=== PATIENT | male | born 1960 | race Caucasian/White ===

== ENCOUNTER 2018-04-15 22:32 | Emergency (ER) | payer OTHER ==
[~2018-04-15] VITALS: Ht 175.3 cm; Wt 68.0 kg
[2018-04-16] MEDS ORDERED: SODIUM CHLORIDE 0.9% 1,000 ML IV ONE (01:14)
[2018-04-16] MEDS ORDERED: KETOROLAC 30MG/ML VIAL IV STA (01:14)
[2018-04-16] MEDS ORDERED: LORAZEPAM 0.5MG TABLET PO ONE (01:30)
[2018-04-16] MEDS ORDERED: IBUPROFEN 800MG TABLET PO ONE (01:30)
[2018-04-16 01:50] LABS: BASOPHILS % 0.6 % (0.0-2.0); EOSINOPHILS % 1.6 % (0.0-5.0); HEMATOCRIT. 33.8 % (42.0-52.0); HEMOGLOBIN. 11.6 g/dL (14.0-18.0); LYMPHOCYTES % 17.7 % (20.0-50.0); MEAN CORPUSCULAR HEMOGLOBIN 29.5 pg (28.0-32.0); MEAN CORPUSCULAR VOLUME 86.1 fL (80.0-94.0); MEAN PLATELET VOLUME 7.4 fl (7.4-10.4); MONOCYTES % 6.1 % (2.0-8.0); PLATELET 216 x1000/uL (130-400); RED BLOOD CELL COUNT 3.93 mill/uL (4.7-6.1); RED CELL DISTRIBUTION WIDTH 13.3 % (11.6-14.6)
[2018-04-16] MEDS ORDERED: LORAZEPAM 2MG/ML CPJ IM ONE (02:00)
[2018-04-16] MEDS ORDERED: HALOPERIDOL LACTATE 5MG/ML VIAL IM ONE (02:00)
[2018-04-16 04:36] LABS: *COCAINE SCREEN URINE NEGATIVE (NEGATIVE); CANNABINOID URINE SCREEN NEGATIVE (NEGATIVE); METHADONE URINE SCREEN NEGATIVE (NEGATIVE); OPIATES URINE SCREEN NEGATIVE (NEGATIVE); PHENCYCLIDINE URINE SCREEN NEGATIVE (NEGATIVE)
[2018-04-16 04:37] LABS: *AMPHETAMINES SCREEN URINE NEGATIVE (NEGATIVE); *BARBITURATES SCREEN URINE NEGATIVE (NEGATIVE); *BENZODIAZEPINES SCREEN URINE NEGATIVE (NEGATIVE)
[2018-04-16 09:39] LABS: CLARITY URINE CLEAR (CLEAR); COLOR URINE YELLOW (YELLOW); KETONES URINE NEGATIVE (NEGATIVE); LEUKOCYTE ESTERASE URINE NEGATIVE (NEGATIVE); NITRITE URINE NEGATIVE (NEGATIVE); OCCULT BLOOD URINE NEGATIVE (NEGATIVE); PROTEIN URINE NEGATIVE (NEGATIVE); SPECIFIC GRAVITY URINE 1.009 (1.005-1.030); UROBILINOGEN URINE 0.2 E.U./dL (0.2-1.0)
[2018-04-16 14:09] VITALS: BP 135/75
== END 2018-04-16 14:11 | disposition home or self-care (01) ==
LOC: ER 22:32
DX: R51 Headache (principal); M79.10 Myalgia, unspecified site; R11.0 Nausea; E11.9 Type 2 diabetes mellitus without complications; I10 Essential (primary) hypertension; I25.2 Old myocardial infarction
CPT/HCPCS: 36415; 70450; 80048; 80076; 80305; 81003; 82962; 85025; 93005; 96372; 99284; G0482; J1630; J2060; J7030; A4315

== ENCOUNTER 2021-05-20 23:33 | Inpatient (IN) | payer OTHER ==
[~2021-05-20] VITALS: Ht 170.2 cm; Wt 99.8 kg
[2021-05-21] MEDS ORDERED: NITROGLYCERIN 0.4MG TABLET SL SL PRN
[2021-05-21] MEDS ORDERED: ONDANSETRON HCL 4MG/2ML INJ IV ONE
[2021-05-21 00:36] LABS: HEMATOCRIT. 31.6 % (42.0-52.0); HEMOGLOBIN. 10.8 g/dL (14.0-18.0); MEAN CORPUSCULAR HEMOGLOBIN 28.2 pg (28.0-32.0); MEAN CORPUSCULAR VOLUME 82.8 fL (80.0-94.0); MEAN PLATELET VOLUME 7.2 fl (7.4-10.4); PLATELET 267 x1000/uL (130-400); RED BLOOD CELL COUNT 3.82 mill/uL (4.7-6.1); RED CELL DISTRIBUTION WIDTH 14.2 % (11.6-14.6)
[2021-05-21 00:39] LABS: CHLORIDE 101 mEq/L (98-107)
[2021-05-21 00:44] LABS: ETHANOL BLOOD < 10 mg/dL
[2021-05-21 01:31] LABS: D-DIMER 1.07 mg/L FEU (<0.50); INR 0.9; PARTIAL THROMBOPLASTIN TIME 33.3 sec (23.4-31.0); PROTHROMBIN TIME 10.2 sec (9.6-11.0)
[2021-05-21] MEDS: ENOXAPARIN 100MG/ML SYR SUBCUT SCH ×2 (02:34→15:00)
[2021-05-21] MEDS ORDERED: ACETAMINOPHEN 500MG TABLET PO ONE (03:30)
[2021-05-21 04:45] LABS: PLATELET ESTIMATE NORMAL
[2021-05-21] MEDS ORDERED: IOHEXOL-350 100 ML BOTTLE ONE (05:23)
[2021-05-21 07:14] LABS: *AMPHETAMINES SCREEN URINE NEGATIVE (NEGATIVE); *BARBITURATES SCREEN URINE NEGATIVE (NEGATIVE); *BENZODIAZEPINES SCREEN URINE NEGATIVE (NEGATIVE); CANNABINOID URINE SCREEN NEGATIVE (NEGATIVE); METHADONE URINE SCREEN NEGATIVE (NEGATIVE); OPIATES URINE SCREEN NEGATIVE (NEGATIVE); PHENCYCLIDINE URINE SCREEN NEGATIVE (NEGATIVE)
[2021-05-21 07:15] LABS: *COCAINE SCREEN URINE NEGATIVE (NEGATIVE)
[2021-05-21] MEDS ORDERED: AMLODIPINE 5MG TABLET PO NR (12:30)
[2021-05-21] MEDS: ONDANSETRON HCL 4MG/2ML INJ IV PRN ×2 (14:59→18:59)
[2021-05-21] MEDS: HYDRALAZINE 20MG/ML VIAL IV PRN ×2 (14:59→21:46)
[2021-05-21] MEDS: AMLODIPINE 5MG TABLET PO SCH (21:00)
[2021-05-22] MEDS: METOCLOPRAMIDE HCL 10MG/2ML VIAL IV PRN ×3 (00:01→14:32)
[2021-05-22] MEDS: DEXT 5%/0.45% NACL 1000ML 1,000 ML IV SCH ×2 (00:07→13:33)
[2021-05-22] MEDS: KCL 20MEQ/100ML PREMIX 100 ML IV NR ×2 (00:58→03:36)
[2021-05-22] MEDS: ONDANSETRON HCL 4MG/2ML INJ IV PRN ×3 (03:36→13:32)
[2021-05-22] MEDS: ENOXAPARIN 100MG/ML SYR SUBCUT SCH ×2 (03:39→13:32)
[2021-05-22 05:20] LABS: HEMOGLOBIN. 10.6 g/dL (14.0-18.0); MEAN CORPUSCULAR HEMOGLOBIN 28.4 pg (28.0-32.0); MEAN CORPUSCULAR VOLUME 83.1 fL (80.0-94.0); MEAN PLATELET VOLUME 7.4 fl (7.4-10.4); PLATELET 269 x1000/uL (130-400); RED BLOOD CELL COUNT 3.74 mill/uL (4.7-6.1)
[2021-05-22 05:26] LABS: CHLORIDE 104 mEq/L (98-107)
[2021-05-22] MEDS: AMLODIPINE 5MG TABLET PO SCH ×2 (09:41→22:48)
[2021-05-22] MEDS: ASPIRIN 81MG EC TABLET PO SCH (09:41)
[2021-05-22 12:27] LABS: PLATELET ESTIMATE NORMAL
[2021-05-22 18:15] VITALS: BP 149/76
[2021-05-22] MEDS ORDERED: INFLUENZA VACCINE 05/PF 0.5 ML SYRINGE IM ONE (19:30)
[2021-05-22] MEDS ORDERED: PNEUMOCOCCAL 23-VAL P-SAC VAC 0.5 ML IM ONE (19:30)
[2021-05-22] MEDS ORDERED: METF-414 MT (19:56)
[2021-05-22 20:00] VITALS: BP 168/87
[2021-05-23] MEDS: DEXT 5%/0.45% NACL 1000ML 1,000 ML IV SCH (03:09)
[2021-05-23] MEDS: ENOXAPARIN 100MG/ML SYR SUBCUT SCH (03:10)
[2021-05-23 04:00] VITALS: BP 189/90
[2021-05-23 06:27] LABS: BASOPHILS % 0.3 % (0.0-2.0); EOSINOPHILS % 0.2 % (0.0-5.0); HEMATOCRIT. 29.1 % (42.0-52.0); HEMOGLOBIN. 10.1 g/dL (14.0-18.0); LYMPHOCYTES % 12.4 % (20.0-50.0); MEAN CORPUSCULAR HEMOGLOBIN 28.3 pg (28.0-32.0); MEAN CORPUSCULAR VOLUME 81.9 fL (80.0-94.0); MEAN PLATELET VOLUME 7.3 fl (7.4-10.4); MONOCYTES % 6.1 % (2.0-8.0); PLATELET 277 x1000/uL (130-400); RED BLOOD CELL COUNT 3.55 mill/uL (4.7-6.1); RED CELL DISTRIBUTION WIDTH 13.8 % (11.6-14.6)
[2021-05-23 08:00] VITALS: BP 149/83
[2021-05-23] MEDS ORDERED: GUAIFENESIN-DM 200MG-20MG/10ML UDC PO PRN (08:45)
[2021-05-23] MEDS ORDERED: POTASSIUM CHLORIDE 20MEQ TABLET SR PO NR (08:45)
[2021-05-23] MEDS ORDERED: DEXTROSE 50% WATER 50ML SYRINGE IV PRN (08:45)
[2021-05-23] MEDS: ASPIRIN 81MG EC TABLET PO SCH (08:59)
[2021-05-23] MEDS: AMLODIPINE 5MG TABLET PO SCH (08:59)
[2021-05-23] MEDS: BLOOD SUGAR DIAGNOSTIC STRIP TEST SCH ×2 (09:00→11:40)
[2021-05-23] MEDS: INSULIN LISPRO 100 UNITS/ML SUBCUT SCH ×2 (09:00→11:58)
[2021-05-23 14:39] VITALS: BP 148/88
[2021-05-25] MEDS ORDERED: APIX2.5T PO (11:11)
[2021-05-25] MEDS ORDERED: DEX6 MT (11:11)
[2021-05-25] MEDS ORDERED: AZIT250T12 MT (11:11)
== END 2021-05-23 15:15 | disposition home or self-care (01) | DRG 720 ==
LOC: ER 23:33 → SUPCPDRO 05-21 13:28 → ENRESERV 05-22 17:35 → 7EST 05-22 18:11
PROVIDERS: ADMIT Internal Medicine; ATTEND Internal Medicine
DX: A41.89 Other specified sepsis (principal); J12.82 Pneumonia due to coronavirus disease 2019; N17.9 Acute kidney failure, unspecified; E88.09 Other disorders of plasma-protein metabolism, not elsewhere classified; E11.65 Type 2 diabetes mellitus with hyperglycemia; E66.9 Obesity, unspecified; D64.9 Anemia, unspecified; E11.22 Type 2 diabetes mellitus with diabetic chronic kidney disease; E87.6 Hypokalemia; U07.1 COVID-19; I25.10 Atherosclerotic heart disease of native coronary artery without angina pectoris; I44.4 Left anterior fascicular block; I48.91 Unspecified atrial fibrillation; K52.9 Noninfective gastroenteritis and colitis, unspecified; N18.9 Chronic kidney disease, unspecified; I12.9 Hypertensive chronic kidney disease with stage 1 through stage 4 chronic kidney disease, or unspecified chronic kidney disease; Z68.34 Body mass index [BMI] 34.0-34.9, adult; I25.2 Old myocardial infarction; Z79.82 Long term (current) use of aspirin; Z82.49 Family history of ischemic heart disease and other diseases of the circulatory system
CPT/HCPCS: 36415; 71045; 71275; 80048; 80305; 82962; 83036; 84484; 85025; 93005; 96374; 96375; 96376; 99291; J0360; J1650; J1815; J2405; J2765; J3480; Q9967